=== PATIENT | male | born 1975 | race Hispanic/Latino ===

== ENCOUNTER 2018-07-10 08:56 | Outpatient (CLI) | payer BC ==
--- NOTE | 2018-07-10 11:10 | Cat Scan Report ---
LIMITED CHEST CT SCAN FOR CALCIUM SCORING: History: Dilated aortic root. A limited chest CT scan was carried out for calcium evaluation of the coronary arteries. This dictation is for the non-cardiac portion of the chest which was included. There is no hilar or mediastinal mass seen. The visualized lungs are expanded and clear. No abnormality is seen in the included portion of the upper abdomen. IMPRESSION: No significant abnormalities.
--- NOTE | 2018-07-10 13:04 | Cat Scan Report ---
CTA CHEST: HISTORY: Dilated aortic root. COMPARISON: none. TECHNIQUE: Helical CT in 1.25mm intervals following IV contrast. Sagittal and coronal reformatted images. Rotational MIP images. FINDINGS: Contrast bolus is satisfactory. The aortic root/ascending aorta measures up to 5.4 cm in diameter on coronal image 103. The descending thoracic aorta measures 2.1 cm near the same level. The aortic arch measures 2.5 cm. There is no evidence for dissection or significant atherosclerotic disease. Thyroid gland: Normal. Tracheobronchial tree: Normal. Esophagus: Normal. Heart: Normal. Pericardium: Normal. Mediastinum: Normal. Lung Wang: Normal. Pleural Spaces: Normal. Musculoskeletal: Normal. IMPRESSION: Dilated aortic root measuring 5.4 cm in maximum diameter. See above Otherwise, unremarkable CT chest.
== END 2018-07-10 08:57 | disposition home or self-care (01) ==
LOC: CT 08:56
PROVIDERS: ATTEND Internal Medicine
DX: I77.810 Thoracic aortic ectasia (principal)
CPT/HCPCS: 71275; 75571; Q9967

== ENCOUNTER 2019-02-10 06:16 | Day surgery (SDC) | payer BC ==
[2019-02-10] MEDS ORDERED: ASPIRIN EC 325 MG TAB PO ONE (06:43)
[2019-02-10] MEDS ORDERED: SODIUM CHLORIDE 0.9% 500 ML 500 ML IV SCH (07:00)
[2019-02-10 07:14] LABS: Basophils # (Auto) 0.1 K/mm3 (0.0-0.1); Basophils % (Auto) 1.3 % (0.0-1.8); Eosinophils # (Auto) 0.1 K/mm3 (0.0-0.4); Eosinophils % (Auto) 2.4 % (0.0-4.3); Hematocrit 47.2 % (35.5-45.6); Hemoglobin 15.9 gm/dl (11.8-15.2); Lymphocytes # (Auto) 1.6 K/mm3 (1.2-5.4); Lymphocytes % (Auto) 33.2 % (13.4-35.0); Mean Corpuscular HGB Conc 34 % (32-34); Mean Corpuscular Volume 87 fl (84-94); Monocytes # (Auto) 0.4 K/mm3 (0.0-0.8); Monocytes % (Auto) 8.3 % (0.0-7.3); Platelet Count 238 K/mm3 (140-440); Red Blood Count 5.42 M/mm3 (3.65-5.03); Red Cell Distribution Width 13.2 % (13.2-15.2)
[2019-02-10 07:22] LABS: INR 0.93 (0.87-1.13)
[2019-02-10 07:22] LABS: BUN/Creatinine Ratio 20; Blood Urea Nitrogen 16 mg/dL (9-20); Calcium 9.3 mg/dL (8.4-10.2); Hemolysis Index 5
[2019-02-10] MEDS: LIDOCAINE (2%) 20 MG/1 ML VIAL 20 ML MDV INFILTRATI ONE ×2 (08:35→08:51)
[2019-02-10] MEDS: fentaNYL 100 MCG/2 ML INJ ONE ×2 (08:35→08:48)
[2019-02-10] MEDS: MIDAZOLAM 2 MG/2 ML INJ ONE ×2 (08:35→08:48)
[2019-02-10] MEDS: VERAPAMIL 5 MG/2 ML INJ ONE ×2 (08:36→08:53)
[2019-02-10] MEDS: HEPARIN 10,000 UNITS/10 ML VIAL ONE ×2 (08:36→08:53)
[2019-02-10] MEDS: HEPARIN/NS 5000 UNIT/500ML 1,000 ML IR ONE ×2 (08:36→08:51)
[2019-02-10] MEDS: NITROGLYCERIN SYRINGE 3 ML ONE ×2 (08:37→08:53)
--- NOTE | 2019-02-10 10:07 | Cardiac Catherization Report ---
CARDIAC CATHETERIZATION REFERRING PHYSICIAN: Dr. Fred Carrasco. INDICATION FOR PROCEDURE: The patient is a very pleasant 43-year-old gentleman who has a dilated aortic root which we have been following, has been seeing cardiothoracic surgery. He has now decided to proceed with a root replacement. This is scheduled to be performed in the coming weeks. He is here for a preoperative left heart catheterization in anticipation of aortic root surgery with hopefully which is valve sparing. Risks, benefits, alternatives discussed prior to obtaining informed consent. PROCEDURE IN DETAIL: The patient was brought to the laborer carpentry dock in a postabsorptive state, prepped and draped in sterile fashion. Gilson's test in right hand was normal. A 2 mL of 2% lidocaine used to anesthetize the right wrist. A standard 6-Lux[place]bourgish hydrophilic sheath used to cannulate the right radial artery via modified Seldinger technique. All exchanges performed to exchange a J-tip guidewire. JL3.5 catheter used to engage the left main. No dampening or ventricularization. Cineangiography performed in multiple projections. JR4 catheter used to cross the aortic valve under fluoroscopic guidance. Left ventriculography performed in 30 GREENBERG and 30 ELEAZAR projections via hand injections, catheter flushed. Manual pullback performed with continuous pressure monitoring. Catheter used to engage the right coronary. No dampening or ventricularization. Cineangiography performed in multiple projections. Next, catheter exchanged for a pigtail catheter. Root aortography performed in the ELEAZAR projection with power injector. Next, catheter removed from the body of wire, sheath removed. Manual pressure was used to achieve hemostasis. I directly supervised the administration of moderate sedation from 8:48 a.m. to 9:12 a.m. with fentanyl and Versed. DATA: Aortic pressure is 110/70, LV pressure is 110. LVP of 20 mmHg. Left ventriculography reveals normal systolic performance with estimated ejection fraction of 55-60%. No evidence of aortic stenosis. CORONARY ANATOMY: This is a right dominant system. Right coronary is a moderate sized vessel, courses AV groove, distally bifurcates in the posterior and posterolateral branch. No discrete stenosis noted. Left main without significant disease, bifurcates left anterior and left circumflex. Left circumflex, moderate sized vessel, courses AV groove. No significant disease. LAD is a moderate sized vessel, courses anterior intergroove, wraps around the apex, no significant disease in LAD. Root aortography reveals a moderate to severely dilated root at the level of the sinus of Valsalva and proximal aortic root. The remaining of the ascending aorta appears to be relatively normal in size. Normal great vessel anatomy, no dissection, no significant aortic insufficiency identified. CONCLUSIONS: 1. No angiographic evidence of significant epicardial coronary disease in this right dominant system. 2. Normal left ventricular systolic performance, estimated ejection fraction of 55-60%. 3. No evidence of aortic stenosis. 4. High normal LVEDP. 5. Dilated aortic root at the level of the sinus of Valsalva and proximal aortic root without evidence of significant aortic insufficiency or aortic stenosis. The patient tolerated procedure well, standard radial care. Results of procedure explained to the patient and family. All questions and concerns were addressed. The patient will follow up. The patient is scheduled to undergo surgery at [facility]. Follow up with me in the office. Stable cardiac status. JOB# [id number] HILDA/ISMAEL
--- NOTE | 2019-02-10 10:18 | Short Stay Summary ---
Short Stay Documentation Date of service: 02/10/19 - History H&P: obtained from office - Allergies and Medications Current Medications: Allergies No Known Allergies Allergy (Unverified 02/10/19 06:17) Home Medications Medication Instructions Recorded Confirmed Last Taken Type Metoprolol [Lopressor] 12.5 mg PO BID 02/10/19 02/10/19 02/09/19 History Active Medications Sodium Chloride (Nacl 0.9% 500 Ml) 500 mls @ 50 mls/hr IV DIRECT ASHLEY Stop: 02/10/19 16:59 Last Admin: 02/10/19 07:20 Dose: 50 mls/hr Documented by: - Brief post op/procedure progress note Date of procedure: 02/10/19 Pre-op diagnosis: dilated aortic root Post-op diagnosis: same Procedure: [facility] - see dictated cath report Anesthesia: local Estimated blood loss: none Condition: stable - Disposition Condition at discharge: Good Disposition: [id number] TO HOME OR SELFCARE - Discharge Diagnoses (1) Dilated aortic root Status: Chronic (2) Normal coronary arteries Status: Chronic Short Stay Discharge Plan Wound: open to air, keep clean and dry, per your surgeon's advice Follow up with: CHEKO RUSSO MD [Primary Care Provider] - 7 Days MARCO ORTA MD [Staff Physician] - 7 Days
[2019-02-10 12:01] VITALS: BP 105/70
== END 2019-02-10 12:15 | disposition home or self-care (01) ==
LOC: CATHLABREC 06:16
PROVIDERS: ATTEND Internal Medicine
DX: I77.810 Thoracic aortic ectasia (principal); I10 Essential (primary) hypertension; J45.909 Unspecified asthma, uncomplicated; Z79.899 Other long term (current) drug therapy; Z87.891 Personal history of nicotine dependence; Z98.890 Other specified postprocedural states
CPT/HCPCS: 36415; 80048; 85025; 85610; 85730; 93005; 93010; 93458; 93567; 99156; C1894; J1644; J2250; J3010; J7040; Q9967